=== PATIENT | male | born 1995 ===

== ENCOUNTER 2017-06-04 11:43 | Emergency (ER) | payer SELFPAY | END 2017-06-04 13:10 | disposition home or self-care (01) | LOC: E/R 13:10 | DX: S62.636A Displaced fracture of distal phalanx of right little finger, initial encounter for closed fracture (principal); V00.131A Fall from skateboard, initial encounter; Y92.9 Unspecified place or not applicable | CPT/HCPCS: 29130; 73140; 99283-25 ==